=== PATIENT | male | born 2000 | race Hispanic/Latino ===

== ENCOUNTER 2020-11-09 08:19 | Emergency (ER) | payer OTHER, SELFPAY | END 2020-11-09 09:31 | disposition home or self-care (01) | LOC: ERS 08:19 | DX: G51.0 Bell's palsy (principal); F17.210 Nicotine dependence, cigarettes, uncomplicated | CPT/HCPCS: 99283 ==

== ENCOUNTER 2021-06-22 16:17 | Emergency (ER) | payer BC, SELFPAY ==
[2021-06-23 12:22] LABS: SARS-CoV-2 PCR by NAA DETECTED (NotDetected)
== END 2021-06-22 18:01 | disposition home or self-care (01) ==
LOC: ERS 16:17
DX: U07.1 COVID-19 (principal); F17.210 Nicotine dependence, cigarettes, uncomplicated
CPT/HCPCS: 99283; U0003; U0005